=== PATIENT | male | born 1950 | race Hispanic/Latino ===

== ENCOUNTER 2017-01-21 06:11 | Day surgery (SDC) | payer MEDICARE, OTHER ==
[2017-01-15 07:04] VITALS: BMI 24.7
[2017-01-21] MEDS ORDERED: Propofol 10 mg/ml Inj (20 ML) ONE (08:21)
[2017-01-21] MEDS ORDERED: Lidocaine 1% Inj (20ml) ONE (08:23)
[2017-01-21] MEDS ORDERED: Lactated Ringer's 1,000 ML IV SCH (09:00)
[2017-01-21 10:18] VITALS: BP 113/77; PULSE 67; RESP 17; TEMP 98; O2SAT 98
== END 2017-01-21 10:10 | disposition home or self-care (01) ==
LOC: ENDO 06:11
PROVIDERS: ATTEND Specialist
DX: R13.10 Dysphagia, unspecified (principal); C02.9 Malignant neoplasm of tongue, unspecified; Z85.46 Personal history of malignant neoplasm of prostate
CPT/HCPCS: 43246; J2704; J3010; J7040; J7120

== ENCOUNTER 2017-04-29 08:25 | Day surgery (SDC) | payer MEDICARE, OTHER ==
[2017-01-15 07:04] VITALS: BMI 24.7
[2017-04-29] MEDS ORDERED: Propofol 10 mg/ml Inj (20 ML) ONE (09:58)
[2017-04-29] MEDS ORDERED: Sodium Chloride 0.9% 1,000 ML IV SCH (10:15)
[2017-04-29 10:48] VITALS: O2SAT 97
[2017-04-29 11:37] VITALS: BP 116/64; PULSE 71; RESP 18; TEMP 98
== END 2017-04-29 11:44 | disposition home or self-care (01) ==
LOC: ENDO 08:25
PROVIDERS: ATTEND Specialist
DX: Z43.1 Encounter for attention to gastrostomy (principal); Z85.038 Personal history of other malignant neoplasm of large intestine; Z85.46 Personal history of malignant neoplasm of prostate
CPT/HCPCS: 43247; C1773; J2001; J2704; J7040 ×2